=== PATIENT | female | born 1950 | race Caucasian/White ===

== ENCOUNTER 2019-08-25 17:03 | Inpatient (IN) | payer MEDICARE, MEDICAID ==
[~2019-08-25] VITALS: Ht 172.7 cm; Wt 96.6 kg
[2019-08-25 17:06] VITALS: BP 132/86
--- NOTE | 2019-08-25 17:06 | NUR ---
ED Nurse Note:pt. was BIBA from assist living with c/o fever and AMS with respiratory distress
--- NOTE | 2019-08-25 17:14 | Emergency Room Report ---
History of Present Illness General Chief Complaint: Fever Source: Medical Record, EMS Present Illness HPI Disclaimer: Please note that this report is being documented using DRAGON technology. This can lead to erroneous entry secondary to incorrect interpretation by the dictating instrument. HPI: 69-year-old female presents from her assisted living facility for evaluation of fever cough and diarrhea. Symptoms present approximately 3 days. She has a history of COPD, hypertension and anxiety disorder. Continues to smoke. She notes worsening cough for the past 3 days and difficulty catching her breath today. She was found febrile with a temperature of 102 and hypoxic with pulse ox in the 80s. No recent hospitalization or steroid use per patient. EMS gave breathing treatment en route. Patient was also noted to be increasingly lethargic per EMS report given by staff at her facility. She denies any chest pain or palpitations. She denies abdominal pain or vomiting. Denies any dysuria or hematuria. PMH: COPD, obesity, hypertension, anxiety disorder PSH: Oophorectomy Allergies: Sulfa medications Social Hx: Current smoker Allergies: Uncoded Allergies: SULFA (Allergy, Unknown, 08/25/19) Nursing Documentation-PMH Past Medical History: No History, Except For Hx Cardiac Problems: Yes Hx COPD: Yes History Of Psychiatric Problem: Yes Review of Systems All Other Systems: negative except mentioned in HPI Physical Exam Vital Signs Date Time Temp Pulse Resp B/P (MAP) Pulse Ox O2 Delivery O2 Flow Rate FiO2 08/25/19 16:55 102.7 84 18 132/86 (101) 92 Simple Mask 6.0 General: Somnolent but easily arousable, febrile HEENT: NC/AT. EOMI. Cardiovascular: RRR. S1 and S2 normal. No murmur appreciated Resp: Normal work of breathing. Intermittent cough with coarse rhonchi bilaterally. Scant expiratory wheezes. Abdomen: Abdomen is soft, obese, nondistended. Nontender Skin: Intact. No abrasions, laceration or rash over the exposed skin MSK: Normal tone and bulk. Moving all extremities. No obvious deformity. Neuro: Somnolent but easily arousable. Answering questions appropriately. Medical Decision Making Diagnostic Impression: Primary Impression: Pneumonia Additional Impression: Fever ER Course 69-year-old female presents for evaluation of 3 days worsening cough, fever, diarrhea. Differential includes was not limited to sepsis, pneumonia, bronchitis, COPD exacerbation, UTI, viral gastroenteritis, pancreatitis, cholecystitis to name a few. Start a broad metabolic infectious work-up. Will provide IV fluids, antipyretics, breathing treatments, steroids and cover with antibiotics. Will send cultures. She is saturating 90% on 6 L. Patient will require admission Laboratory Tests Test 08/25/19 17:30 08/25/19 18:45 White Blood Count 14.7 K/UL (4.8-10.8) H Red Blood Count 6.07 M/UL (4.20-5.40) H Hemoglobin 17.8 G/DL (12.0-16.0) H Hematocrit 53.3 % (37.0-47.0) H Mean Corpuscular Volume 88 FL (80-99) Mean Corpuscular Hemoglobin 29.4 PG (27.0-31.0) Mean Corpuscular Hemoglobin Concent 33.5 G/DL (32.0-36.0) Red Cell Distribution Width 15.0 % (11.6-14.8) H Platelet Count 269 K/UL (150-450) Mean Platelet Volume 6.3 FL (6.5-10.1) L Neutrophils (%) (Auto) 81.2 % (45.0-75.0) H Lymphocytes (%) (Auto) 10.0 % (20.0-45.0) L Monocytes (%) (Auto) 8.1 % (1.0-10.0) Eosinophils (%) (Auto) 0.3 % (0.0-3.0) Basophils (%) (Auto) 0.4 % (0.0-2.0) Urine Color Pending Urine Appearance Pending Urine pH Pending Urine Specific [place] Pending Urine Protein Pending Urine Glucose (UA) Pending Urine Ketones Pending Urine Blood Pending Urine Nitrite Pending Urine Bilirubin Pending Urine Urobilinogen Pending Urine Leukocyte Esterase Pending Sodium Level 137 MMOL/L (136-145) Potassium Level 4.6 MMOL/L (3.5-5.1) Chloride Level 99 MMOL/L (98-107) Carbon Dioxide Level 27 MMOL/L (21-32) Anion Gap 11 mmol/L (5-15) Blood Urea Nitrogen 23 mg/dL (7-18) H Creatinine 1.2 MG/DL (0.55-1.30) Estimate Glomerular Filtration Rate 44.5 mL/min (>60) Glucose Level 106 MG/DL (74-106) Lactic Acid Level 0.80 mmol/L (0.4-2.0) Calcium Level 8.6 MG/DL (8.5-10.1) Total Bilirubin 0.6 MG/DL (0.2-1.0) Aspartate Amino Transferase (AST) 18 U/L (15-37) Alanine Aminotransferase (ALT) 28 U/L (12-78) Alkaline Phosphatase 81 U/L (46-116) Total Creatine Kinase 66 U/L (26-308) Creatine Kinase MB < 0.5 NG/ML (0.0-3.6) Creatine Kinase MB Relative Index 0.7 Troponin I 0.000 ng/mL (0.000-0.056) Total Protein 7.4 G/DL (6.4-8.2) Albumin 3.2 G/DL (3.4-5.0) L Globulin 4.2 g/dL Albumin/Globulin Ratio 0.8 (1.0-2.7) L Arterial Blood pH 7.344 (7.350-7.450) Arterial Blood Partial Pressure CO2 43.9 mmHg (35.0-45.0) Arterial Blood Partial Pressure O2 62.8 mmHg (75.0-100.0) L Arterial Blood HCO3 23.4 mmol/L (22.0-26.0) Arterial Blood Oxygen Saturation 90.5 % (95-100) L Arterial Blood Base Excess -2.4 (-2-2) L Wilfrido Test Positive Microbiology Date/Time Source Procedure Growth Status 08/25/19 17:30 Nasal Nares - Final Complete 08/25/19 17:30 Nasal Nares - Final Complete EKG Diagnostic Results EKG Time: 17:30 Rate: tachycardiac Rhythm: NSR ST Segments: no acute changes Other Impression Sinus tachycardia, left axis deviation, normal intervals, no ST segment changes Rhythm Strip Diag. Results Rhythm Strip Time: 17:30 EP Interpretation: yes Rate: 115 Rhythm: no PVC's, no ectopy Chest X-Ray Diagnostic Results Chest X-Ray Diagnostic Results : Chest X-Ray Ordered: Yes # of Views/Limited/Complete: 1 View Indication: Shortness of Breath Interpretation: other - Bilateral congestion in the lower lobes Impression: Other - Bilateral congestion lower lobes concerning for possible pneumonia Electronically Signed by: Electronically signed by Dr. Miquel Price Reevaluation Time: 19:06 Last Vital Signs Date Time Temp Pulse Resp B/P (MAP) Pulse Ox O2 Delivery O2 Flow Rate FiO2 08/25/19 17:06 102.7 84 18 132/86 92 Simple Mask 6.0 Reevaluation Impression Labs show an elevated white count of 14.7 with a neutrophil predominance. Blood gas shows low PO2 at 62. Patient is improving on oxygen. Chemistry unremarkable. Lactic acid and troponin within normal limits. Urine is pending. Chest x-ray concerning for right lower lobe infiltrate. Treated with ceftriaxone azithromycin. She received a breathing treatment and steroids but no evidence of CO2 retention. Will admit for treatment of pneumonia. Sputum and blood cultures were sent. PMD is requesting that Dr. Nina admit the patient. Dr. Nina adds that believes that the patient may have taken extra benzodiazepine however she is awake alert and protecting her airway with no respiratory distress or oversedation at this time. Does not require acute intervention. Disposition: ADMITTED INPATIENT Condition: Serious Miquel Price MD Aug 25, 2019 17:14
[2019-08-25] MEDS ORDERED: Acetaminophen 500mg (ES) tab ORAL ONE (17:15)
[2019-08-25] MEDS ORDERED: Azithromycin 500 MG in NS 275 ML IV ONE (17:15)
[2019-08-25] MEDS ORDERED: cefTRIAXone 1 GM in NS 55 ML IVPB ONE (17:15)
[2019-08-25] MEDS ORDERED: Albuterol/Ipratropium 3ml neb HHN ONE (17:15)
[2019-08-25] MEDS ORDERED: Solu-MEDROL 125mg Inj IVP ONE (17:15)
[2019-08-25 17:54] LABS: BASOPHILS % (AUTO) 0.4 % (0.0-2.0); EOSINOPHILS % (AUTO) 0.3 % (0.0-3.0); HEMATOCRIT 53.3 % (37.0-47.0); HEMOGLOBIN 17.8 G/DL (12.0-16.0); MEAN CORPUSCULAR VOLUME 88 FL (80-99); MONOCYTES % (AUTO) 8.1 % (1.0-10.0); NEUTROPHILS % (AUTO) 81.2 % (45.0-75.0); PLATELET COUNT 269 K/UL (150-450); RED BLOOD COUNT 6.07 M/UL (4.20-5.40); WHITE BLOOD COUNT 14.7 K/UL (4.8-10.8)
--- NOTE | 2019-08-25 18:03 | NUR ---
ED Nurse Note:blood sent to labs and given IV fluids and meds
[2019-08-25 18:21] VITALS: BP 120/60
[2019-08-25 18:21] LABS: ANION GAP 11 mmol/L (5-15); BLOOD UREA NITROGEN 23 mg/dL (7-18); CALCIUM 8.6 MG/DL (8.5-10.1); CARBON DIOXIDE 27 MMOL/L (21-32); CHLORIDE 99 MMOL/L (98-107); CREATININE 1.2 MG/DL (0.55-1.30); POTASSIUM 4.6 MMOL/L (3.5-5.1); SODIUM 137 MMOL/L (136-145)
[2019-08-25 18:34] LABS: ALANINE AMINOTRANSFERASE 28 U/L (12-78); ALBUMIN 3.2 G/DL (3.4-5.0); ALBUMIN/GLOBULIN RATIO 0.8 (1.0-2.7); ALKALINE PHOSPHATASE 81 U/L (46-116); ASPARTATE AMINO TRANSFERASE 18 U/L (15-37); BILIRUBIN,TOTAL 0.6 MG/DL (0.2-1.0); CKMB < 0.5 NG/ML (0.0-3.6); CREATINE KINASE 66 U/L (26-308)
--- NOTE | 2019-08-25 18:35 | NUR ---
ED Nurse Note:rechecked temp 99.3
[2019-08-25 20:36] VITALS: BP 110/62
--- NOTE | 2019-08-25 20:50 | NUR ---
ER Nurse Note: Pt continue to be at baseline. Pt asleep, no signs of distress, on 6L NC. Pt refusing to get urine. SLIV RT AC; patent. All orders completed per ERMD orders. All safety measures met; will continue to monitor.
[2019-08-25 22:26] VITALS: BP 108/68
--- NOTE | 2019-08-25 22:27 | NUR ---
ER Nurse Note: No deviations from baseline. SLIV RT AC patent. Pt asleep, no signs of distress. Pt on 6L NC satting >94%. All safety meausures met; will continue to montior.
[2019-08-26 02:06] VITALS: BP 111/74
--- NOTE | 2019-08-26 02:09 | NUR ---
ER Nurse Note: Pt awake, no signs of distress, on 6L NC satting >93% O2, no fever. Denies pain, shortness of breath. Pt refused CRE, VRE, MRSA swabs. Pt refused to provide urine; ERMD aware. All orders completed otherwise. Provided pt with extra blankets. All safety measures met; will continue to monitor.
--- NOTE | 2019-08-26 02:16 | NUR ---
ED Nurse Note: CALLED [facility] FOR ALF PACKET. PER [place], NO NURSE AVAILABLE TO ACCESS PATIENT INFORMATION; CALL BACK IN AM WHEN NURSE AVAILABLE. SPOKE TO KOURTNEY NICOLAS FOR ADMISSION ORDERS. PER KOURTNEY NICOLAS, UNABLE TO PROVIDE ORDERS WITHOUT ALF INFORMATION; CALL BACK IN AM AFTER RECEIVING ALF PACKET.
[2019-08-26 03:23] LABS: BILIRUBIN, URINE NEGATIVE (NEGATIVE); GLUCOSE, URINE (UA) NEGATIVE (NEGATIVE); KETONES,URINE NEGATIVE (NEGATIVE); LEUKOCYTE ESTERASE ,URINE 2+ (NEGATIVE); NITRITE,URINE NEGATIVE (NEGATIVE); PH,URINE 6 (4.5-8.0); PROTEIN,URINE 1+ (NEGATIVE); UROBILINOGEN,URINE NORMAL MG/DL (0.0-1.0)
[2019-08-26 03:25] LABS: COLOR,URINE YELLOW
[2019-08-26 03:29] LABS: APPEARANCE,URINE CLOUDY
[2019-08-26 06:12] VITALS: BP 120/74
--- NOTE | 2019-08-26 06:13 | NUR ---
ER Nurse Note: Pt asleep, no deviations from baseline. Pt VSS, on 4L NC satting >92%. Pt continues to cough without phlegm. Pt denies pain, shortness of breath. All orders completed per ERMD orders. Bedside commode next to pt; pt had one BM and voided. Pt ambulates with assistance; pt ambulates short distances. All safety measures met; will continue to montior.
--- NOTE | 2019-08-26 07:19 | NUR ---
ER Nurse Note: Spoke to Dr. Nina for orders; verbal orders were given and placed. Pt used the bedside commode, urinated and deficated. VSS, all orders completed. Will continue to galo.
--- NOTE | 2019-08-26 07:57 | NUR ---
ER Nurse Note: Report given to LOLI Savage for continuity of care.
[2019-08-26] MEDS ORDERED: PULMICORT0.5 MG/2 M IH (08:29)
[2019-08-26] MEDS ORDERED: AMLODIPINE BESYL5 MG ORAL (08:29)
[2019-08-26] MEDS ORDERED: ATORVASTATIN CA10 MG ORAL (08:29)
[2019-08-26] MEDS ORDERED: ATIVAN2 MG ORAL (08:29)
[2019-08-26] MEDS ORDERED: IPRAT-ALBUT 0.5-3 ML IH (08:36)
[2019-08-26] MEDS ORDERED: ROBITUSSIN COU118 M1 ORAL (08:36)
[2019-08-26] MEDS ORDERED: MILK OF MA400 MG/51 ORAL (08:36)
[2019-08-26] MEDS ORDERED: MAPAP325 M1 PO (08:36)
[2019-08-26 09:00] VITALS: BP 116/64
[2019-08-26] MEDS: Albuterol/Ipratropium 3ml neb HHN SCH ×4 (09:00→23:58)
--- NOTE | 2019-08-26 09:00 | NUR ---
ED Nurse Note: Patient refused Lipitor and Amlodipine. BP 116/64
[2019-08-26] MEDS ORDERED: LORazepam 1mg tab ONE (09:13)
[2019-08-26] MEDS ORDERED: Solu-MEDROL 40mg Inj ONE (09:13)
[2019-08-26] MEDS: LORazepam 1mg tab ORAL SCH ×3 (09:14→21:19)
[2019-08-26] MEDS: Solu-MEDROL 40mg Inj IVP SCH ×3 (09:14→21:20)
[2019-08-26] MEDS: LEVOFLOXACIN 500 MG IVPB SCH (09:15)
--- NOTE | 2019-08-26 09:15 | Diagnostic Imaging Report ---
Indication: Shortness of breath Technique: One view of the chest Comparison: none Findings: Body habitus limits evaluation. The heart is upper limits normal in size. There is some atelectasis or scarring adjacent to the cardiac apex. Lungs and pleural spaces are otherwise clear. Impression: Scarring or atelectasis at the left lung base. No acute process otherwise
--- NOTE | 2019-08-26 10:58 | NUR ---
ED Nurse Note: Report given to Michelle ENNIS on Tele.
--- NOTE | 2019-08-26 10:59 | NUR ---
NURSE NOTES: Received report from ZUHAIR Savage RN
--- NOTE | 2019-08-26 11:20 | NUR ---
NURSE NOTES: Pt transferred from ED via gurney to room 202-2. PT is awake, and talkative, able to answer question and follow commands, pt placed on 4L NC, vitals signs obtained, assessment done, pt is SOB with cough, non-productive, discussed plan of care, bed in lowest position, call light within reach
[2019-08-26 11:30] VITALS: BP 100/66
[2019-08-26] MEDS ORDERED: ACETAMINOPHEN-1 EAC1 ORAL (11:50)
--- NOTE | 2019-08-26 13:52 | NUR ---
NURSE NOTES: Pt states she has had diarrhea, starting at home since 08/25 around noon, she has had 5 episodes at [facility] (4 in ED one on 2E). PT is requesting Imodium to stop diarrhea. RN left message for Dr. Nina to ask for medication and notify that no DVT prophylaxis has been ordered, pt is ambulatory and plts are 269
--- NOTE | 2019-08-26 15:08 | NUR ---
NURSE NOTES: Left message for Dr. Nina regarding pt's pain from diarrhea, requesting to continue Tylenol with codeine, request for Imodium, blood culture result is positive gram + cocci in clusters x1 bottle, and not DVT proph
[2019-08-26 15:26] VITALS: BP 124/66
[2019-08-26] MEDS: Tylenol #3 tab (300mg/30mg) ORAL PRN ×2 (16:07→21:59)
--- NOTE | 2019-08-26 16:30 | History and Physical Report ---
DATE OF ADMISSION: 08/26/2019 HISTORY OF PRESENT ILLNESS: This is a 69-year-old female with a history of anxiety. She was brought from a skilled facility with history of fever, cough, and diarrhea. This has been happening for several days. She also reports history of hypertension and COPD. She is an active smoker. The patient was found to be febrile with hypoxia. She was admitted to the hospital with the diagnosis of exacerbation of COPD. PAST MEDICAL HISTORY: Notable for COPD, obesity, hypertension, and anxiety. PREVIOUS SURGICAL HISTORY: Oophorectomy. ALLERGIES: Sulfa. HOME MEDICATIONS: Reviewed and reconciled in the chart. SOCIAL HISTORY: She lives in a nursing facility. She is active smoker. No alcohol or drug abuse reported. REVIEW OF SYSTEMS: Denies any headaches, hematemesis, melena, hematochezia, night sweats, or weight loss. PHYSICAL EXAMINATION: VITAL SIGNS: Blood pressure is 120/70, heart rate 94, and respirations 18. She is afebrile. O2 saturation 95% on 4 liters of oxygen. LABORATORY DATA: Lab testing shows white count 14,000, hemoglobin 17. Remaining labs are unremarkable. Troponin negative. Microbiology - she underwent nares swab, which was negative for influenza A and B. The patient underwent a x-ray of her chest, which shows left lung base atelectasis versus infiltrate. IMPRESSION: 1. Probable left lung pneumonia. 2. Exacerbation of chronic obstructive pulmonary disease. 3. Hypertension. 4. Anxiety. 5. Obesity. 6. Smoker. DISCUSSION: Admit to the hospital. We will start IV antibiotics and IV steroids. Continue medications, all the breathing treatments. Continue Ativan. We will follow carefully. Larry Nina M.D. DR: JEANETH JOB#: [id number] CC:
[2019-08-26] MEDS: Vancomycin 750 MG in NS 275 ML IVPB SCH (16:55)
--- NOTE | 2019-08-26 18:37 | NUR ---
NURSE NOTES: left message for Dr. Nina as pt is requesting a breakthrough medications for her 8/10 pain in the hips, right knee and neck, Tylenol with codeine give at 1607 and is Q6HR
--- NOTE | 2019-08-26 19:12 | NUR ---
HAND-OFF: Report given to LOLI Mari.
--- NOTE | 2019-08-26 19:30 | NUR ---
NURSE NOTES: Pt received from LOLI Martinez. PT is awake, alert and oriented x4, is complaining of pain and began to cry as she said she is in a lot of pain, explained I will attempt to contact her DR for pain meds but she is already receiving some pain meds and has been given them recently. Pt is on 3L NC, vitals signs obtained, assessment done, pt is SOB with cough, non-productive, discussed plan of care, bed in lowest position, locked, side rails x2, call light within reach- IV looks loose, will reinsert IV.
[2019-08-26 20:00] VITALS: BP 118/59
--- NOTE | 2019-08-26 20:30 | NUR ---
NURSE NOTES: Called and spoke to Dr Nina and pt cannot get anything more for pain, and he will not feed into her addiction. She is already getting tylenol with codeine and ativan and cannot receive anything more at this time.
[2019-08-27] VITALS: BP 113/59
[2019-08-27] MEDS: Solu-MEDROL 40mg Inj IVP SCH ×3 (02:00→13:12)
[2019-08-27] MEDS: Albuterol/Ipratropium 3ml neb HHN SCH ×4 (03:39→14:51)
[2019-08-27 04:00] VITALS: BP 130/64
[2019-08-27] MEDS: LORazepam 1mg tab ORAL SCH ×2 (05:54→13:12)
[2019-08-27] MEDS: Vancomycin 750 MG in NS 275 ML IVPB SCH ×2 (05:55→16:27)
[2019-08-27] MEDS: Tylenol #3 tab (300mg/30mg) ORAL PRN ×3 (06:47→16:26)
--- NOTE | 2019-08-27 07:46 | NUR ---
NURSE NOTES: Received report from LOLI Mari. Pt in bed, awake, talkative, eating breaking, asking for her Ativan, medication is scheduled, RN explained to pt, but she continues to ask for it, no diarrhea overnight, no respiratory distress, discuss plan of care, bed in lowest position, call light within reach.
[2019-08-27 08:00] VITALS: BP 115/49
--- NOTE | 2019-08-27 08:18 | NUR ---
HAND-OFF: Report given to LOLI Martinez.
[2019-08-27] MEDS: LEVOFLOXACIN 500 MG IVPB SCH (09:54)
--- NOTE | 2019-08-27 10:56 | NUR ---
NURSE NOTES: > Kelle at bedside. Pt asking for additional pain medication. stated he will change frequency of Tyelnol #3 from Q6HR to Q4HR. stated pt appears to be feeling better and he will DC her tonight after her dose of Vancomycin scheduled for 1700., provided pt with a written RX for Levaquin 500mg PO QD for 7 days, RX copied and put in paperchart
[2019-08-27 12:00] VITALS: BP 115/59
[2019-08-27] MEDS ORDERED: LEVAQUIN500 MG ORAL (13:15)
--- NOTE | 2019-08-27 13:17 | Pulmonology Progress Note ---
Assessment/Plan Assessment/Plan IMPRESSION: 1. Probable left lung pneumonia. 2. Exacerbation of chronic obstructive pulmonary disease. 3. Hypertension. 4. Anxiety. 5. Obesity. 6. Smoker. DISCUSSION: Continue medications, continue breathing treatments. Continue Ativan. Dc home/assisted living today PO Levaquin Larry Nina M.D. Subjective Interval Events: None new Constitutional: Reports: no symptoms HEENT: Repors: no symptoms Respiratory: Reports: no symptoms Cardiovascular: Reports: no symptoms Gastrointestinal/Abdominal: Reports: no symptoms Allergies: Coded Allergies: SULFA (SULFONAMIDE ANTIBIOTICS) (Unverified Allergy, Unknown, 08/27/19) Uncoded Allergies: SULFA (Allergy, Unknown, 08/25/19) Objective Last 24 Hour Vital Signs Date Time Temp Pulse Resp B/P (MAP) Pulse Ox O2 Delivery O2 Flow Rate FiO2 08/27/19 12:16 97.9 08/27/19 12:00 97.9 81 20 115/59 (77) 92 08/27/19 11:50 74 08/27/19 11:03 95 18 97 Room Air 94 18 96 08/27/19 08:08 Room Air Room Air 08/27/19 08:01 92 130/64 08/27/19 08:00 97.4 82 20 115/49 (71) 92 08/27/19 07:47 81 08/27/19 07:25 92 18 96 Room Air 21 08/27/19 04:00 69 08/27/19 04:00 97.6 75 20 130/64 (86) 90 08/27/19 00:00 90 08/27/19 00:00 98.1 81 20 113/59 (77) 90 08/26/19 21:00 Room Air Room Air 08/26/19 20:27 103 20 99 Room Air 21 08/26/19 20:17 102 22 97 Room Air 21 08/26/19 20:13 102 22 97 Room Air 21 08/26/19 20:00 88 08/26/19 20:00 98.8 89 20 118/59 (78) 90 08/26/19 16:37 97.7 08/26/19 15:32 101 08/26/19 15:26 97.7 91 18 124/66 (85) 91 Intake and Output 08/26/19 08/27/19 19:00 07:00 Intake Total 840 ml Balance 840 ml Intake Oral 840 ml # Voids 3 3 # Bowel Movements 5 1 General Appearance: no acute distress HEENT: normocephalic Respiratory/Chest: chest wall non-tender, lungs clear Cardiovascular: normal peripheral pulses, normal rate Abdomen: normal bowel sounds Microbiology Date/Time Source Procedure Growth Status 08/25/19 17:30 Blood Blood Culture - Preliminary Gram Positive Cocci Resulted 08/25/19 17:30 Blood Blood Culture - Preliminary NO GROWTH AFTER 24 HOURS Resulted 08/25/19 17:30 Nasal Nares - Final Complete 08/25/19 17:30 Nasal Nares - Final Complete 08/25/19 03:03 Urine,Clean Catch Urine Culture - Preliminary Mixed Urogenital Contaminants Resulted Current Medications Medications (Trade) Dose Ordered Sig/Christie Route PRN Reason Start Time Stop Time Status Last Admin Dose Admin Acetaminophen/ Codeine Phosphate (Tylenol #3) 1 tab Q4H PRN ORAL For Pain 08/27/19 11:00 09/02/19 15:44 08/27/19 11:46 Albuterol/ Ipratropium (Albuterol/ Ipratropium) 3 ml Q4HRT HHN 08/26/19 09:00 08/31/19 08:59 08/27/19 11:03 Amlodipine Besylate (Norvasc) 5 mg DAILY ORAL 08/26/19 09:00 09/25/19 08:59 08/27/19 08:01 Atorvastatin Calcium (Lipitor) 10 mg DAILY ORAL 08/26/19 09:00 09/25/19 08:59 08/27/19 08:01 Levofloxacin 100 ml @ 20 mls/hr DAILY IVPB 08/28/19 09:00 09/02/19 08:59 Loperamide HCl (Imodium) 2 mg Q6H PRN ORAL Diarrhea 08/26/19 15:45 09/25/19 15:44 08/26/19 16:07 Lorazepam (Ativan) 2 mg EVERY 8 HOURS ORAL 08/26/19 09:00 09/02/19 08:59 08/27/19 13:12 Methylprednisolone Sodium Succinate (Solu-MEDROL) 40 mg Q6H IVP 08/26/19 08:00 09/25/19 07:59 08/27/19 13:12 Vancomycin HCl (Vanco rx to dose) 1 ea DAILY PRN MISC Per rx protocol 08/26/19 15:45 09/25/19 15:44 Vancomycin HCl 750 mg/Sodium Chloride 275 ml @ 183.333 mls/hr Q12HR@0500,1700 IVPB 08/26/19 17:00 08/31/19 16:59 08/27/19 05:55 Larry Nina MD Aug 27, 2019 13:17
[2019-08-27 16:00] VITALS: BP 128/66
--- NOTE | 2019-08-27 16:55 | NUR ---
NURSE NOTES: Reviewed all DC paperwork with pt including educational material for new medication Levofloxacin tables including side effect, frequency, dose, route, and how long to take and purpose, pt stated she understood where she was going and all instructions to follow. Tele box removed and returned to strain technician, pt stating she does not have her black and white Vans shoes, no shoes listed on belongings list, RN contacted ER and nothing was there, RN contacted lost and found, nothing was there. Pt signed belongings list and all papers
--- NOTE | 2019-08-27 18:59 | NUR ---
CASE MANAGEMENT: REVIEW 69 YEAR OLD FEMALE BIBA FROM [facility] CC: FEVER SI: PNA T 102.7 HR 84 RR 18 BP 132/86 SAT 92% SIMPLE MASK FLOW RATE 6.0 WBC 14.7 ABG: PH 7.344 PO2 62.8 SAT 90.5 CXR -- SCARRING OR ATELECTASIS AT THE LEFT LUNG BASE IS: NS IVF BOLUS X1 ITA NEB HHN X1 TYLENOL 1000MG ORAL X1 CEFTRIAXONE IV X1 AZITHROMYCIN IV X1 SOLU MEDROL IV X1 LEVOFLOXACIN IV X1 PATIENT ADMITTED TO TELEMETRY UNIT 08/26/2019 DCP: PATIENT IS FROM [facility]
--- NOTE | 2019-08-27 19:00 | NUR ---
NURSE NOTES: Pt discharged with all belongings except she states no Vans shoes, but no listed on belongings list. PT was given taxi voucher and hand written RX, all dc paperwork in hand, pt taken to taxi via wheelchair, pt stable for discharge
--- NOTE | 2019-08-28 18:44 | Discharge Summary ---
Discharge Summary Discharge Summary _ DATE OF ADMISSION: 08/26/2019 DATE OF DISCHARGE: 08/27/2019 DISCHARGED BY: Dr. Nina REASON FOR ADMISSION: 69 years old female with past medical history of COPD, hypertension, obesity, anxiety, current smoker, was brought from the [facility] facility due to fever, cough and diarrhea. Symptoms were present for several days. Patient was reported being an active smoker. Upon evaluation in emergency department patient was found to be febrile and hypoxic. Laboratory work-up revealed leukocytosis. Chest x-ray revealed left lung atelectasis versus infiltrate. Urinalysis revealed no pyuria, +2 leukocyte esterase and many bacteria. Patient subsequently admitted for further management . HOSPITAL COURSE: Patient started on empiric antibiotics and IV steroids. Supplemental oxygen provided and titrated to keep oximetry above 90%. Bronchodilator therapy via handheld nebulizing provided. Patient received IV steroids. Influenza swab was negative. Urine culture revealed mixed urogenital contaminants. Blood culture revealed 1 out of 4 Staph coagulase-negative, likely contaminant. Blood pressure was managed with calcium channel caryl. Statin continued. Anxiolytic were on board as needed. Antidiarrheal provided as needed. The next day fevers resolved. Diarrhea stopped. Patient clinically improved and was able to wean down to room air. Pulse oximetry was 96 to 97% on room air prior to discharge. Patient clinically stabilized and was ready for transfer [facility] on oral antibiotics to complete the course. Patient was counseled on abstinence from smoking . Due to rapid and unexpected improvement in patient condition, patient was discharged in 1 week. FINAL DIAGNOSES: Probably left lung pneumonia Acute COPD exacerbation Hypertension Anxiety Obesity DISCHARGE MEDICATIONS: See Medication Reconciliation list. DISCHARGE INSTRUCTIONS: Patient was discharged to the retirement facility. Follow up with medical doctor at the facility. I have been assigned to dictate discharge summary for this account. I was not involved in the patient's management. Janny Jay NP Aug 28, 2019 18:44
== END 2019-08-27 19:00 | disposition home or self-care (01) | DRG 190 ==
LOC: EDBD 17:03 → EMR 17:05 → EDBEDREQ 08-26 06:28 → 2E 08-26 07:06 → UNDOADMIN 08-26 07:06 → EDBEDREQ 08-26 07:20 → 2E 08-26 10:39
DX: J44.1 Chronic obstructive pulmonary disease with (acute) exacerbation (principal); J18.9 Pneumonia, unspecified organism; Z88.2 Allergy status to sulfonamides; I10 Essential (primary) hypertension; F41.9 Anxiety disorder, unspecified; E66.9 Obesity, unspecified; F17.200 Nicotine dependence, unspecified, uncomplicated; R09.02 Hypoxemia; Z68.32 Body mass index [BMI] 32.0-32.9, adult
CPT/HCPCS: 36415; 36600; 71045; 80053; 81003; 82550; 82553; 82803; 83605; 83880; 84484; 85025; 86710; 87040; 87081; 87086; 87181; 93005; 94640; 94664; 96365; 96368; 96375; 99285; J7030; J7620